=== PATIENT | male | born 1950 | race Caucasian/White ===

== ENCOUNTER 2019-03-26 10:55 | Inpatient (IN) | payer OTHER ==
[2019-03-26 12:12] VITALS: BMI 35.4
--- NOTE | 2019-03-26 13:35 | HP ---
CIWA Score Nausea/Vomitin-Mild Nausea/No Vomiting Muscle Tremors: 4-Moderate,w/Arms Extend Anxiety: 1-Mildly Anxious Agitation: 3 Paroxysmal Sweats: 1-Minimal Palms Moist Orientation: 0-Oriented Tacttile Disturbances: 2-Mild Itch/Numbness/Burn Auditory Disturbances: 0-None Visual Disturbances: 1-Very Mild Sensitivity Headache: 0-None Present CIWA-Ar Total Score: 13 - Admission Criteria OASAS Guidelines: Admission for Medically Managed Detox: Requires at least one of the followin. CIWA greater than 12 2. Seizures within the past 24 hours 3. Delirium tremens within the past 24 hours 4. Hallucinations within the past 24 hours 5. Acute intervention needed for co occurring medical disorder 6. Acute intervention needed for co occurring psychiatric disorder 7. Severe withdrawal that cannot be handled at a lower level of care (continued vomiting, continued diarrhea, abnormal vital signs) requiring intravenous medication and/or fluids 8. Admission ROS [facility] Chief Complaint: detox from alcohol Allergies/Adverse Reactions: Allergies Allergy/AdvReac Type Severity Reaction Status Date / Time No Known Allergies Allergy Verified 03/26/19 12:02 History of Present Illness: Mr. Barnes is a 68yo male with HTN and HLD who presents for detox from alcohol. Pt reports drinking 1-1.25 L of vodka daily for the last 6 months. Prior he was drinking a pint a night for about 20 years. He reports hx of blackouts but denies seizures. His last drink was 3 days ago. Yesterday he presented to [facility] ED with c/c of tremors. He said he was given meds that calmed him down. Urine tox was pos for BZD today. Pt reports recent stressors including of parents and fight with live-in girlfriend. 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 Pt reports dizziness, weakness, tremors, anxiety, numbness. He denies chest pain , SOB, n/v. PMH: HTN, HLD meds: losartan, amlodipine/benazapril, clonidine, pravastatin NKDA surgical hx: tonsillectomy family hx: brother-alcohol use disorder social hx: former smoker quit 40 years ago - Ebola screening Have you traveled outside of the country in the last 21 days: No (N) Have you had contact with anyone from an Ebola affected area: No Do you have a fever: No - Review of Systems Constitutional: Weakness EENT: reports: No Symptoms Reported Respiratory: denies: Cough, Shortness of Breath Cardiac: denies: Chest Pain GI: denies: Diarrhea, Nausea, Vomiting, Abdominal cramping : reports: No Symptoms Reported Musculoskeletal: reports: No Symptoms Reported Integumentary: reports: No Symptoms Reported Neuro: reports: Dizziness. denies: Headache Endocrine: reports: No Symptoms Reported Hematology: reports: No Symptoms Reported Psychiatric: reports: Judgement Intact, Mood/Affect Appropiate, Orientated x3 Patient History - Patient Medical History Hx Hypertension: Yes Hx Hypercholesterolemia: Yes Hx Seizures: No Hx Human Immunodeficiency Virus (HIV): No - Patient Surgical History Other Surgical History: tonsillectomy - Smoking Cessation Smoking history: Former smoker Have you smoked in the past 12 months: No Initiated information on smoking cessation: No - Substances abused Alcohol Substance route: Oral Frequency: Daily Amount used: 1 1/4 quarter liter of vodka Age of first use: 10 Date of last use: 03/23/19 Family Disease History - Family Disease History Family Disease History: Other: Brother (alcohol use disorder) Admission Physical Exam [facility] - Vital Signs Vital Signs: Vital Signs - 24 hr 03/26/19 12:07 Temperature 97.1 F L Pulse Rate 65 Respiratory 20 Rate Blood Pressure 109/67 - Physical General Appearance: Yes: No Apparent Distress, Nourished HEENTM: Yes: Hearing grossly Normal, Normocephalic, JULIA, Other (moist mucous membranes) Respiratory: Yes: Normal Breath Sounds, No Respiratory Distress Neck: Yes: Within Normal Limits Cardiology: Yes: Regular Rhythm, Regular Rate. 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, Fully Oriented, Alert, Motor Strength 5/5, Normal Response, Other (pressured speech) Integumentary: Yes: Within Normal Limits - Diagnostic (1) Hypertension Current Visit: Yes Status: Chronic Qualifiers: Hypertension type: essential hypertension Qualified Code(s): I10 - Essential (primary) hypertension (2) Hyperlipidemia Current Visit: Yes Status: Chronic Qualifiers: Hyperlipidemia type: unspecified Qualified Code(s): E78.5 - Hyperlipidemia , unspecified (3) Alcohol use disorder Current Visit: Yes Status: Chronic Cleared for Admission BHS - Detox or Rehab [facility] Level of Care: Medically Managed Breathalyzer - Breathalyzer Breathalyzer: 0 Urine Drug Screen - Test Device Lot number: [id number] Expiration date: 01/03/21 - Control Is test valid?: Yes - Results Drug screen NEGATIVE: No Urine drug screen results: BZO-Benzodiazepines Inpatient Rehab Admission - Rehab Decision to Admit Inpatient rehab admission?: No
[2019-03-26] MEDS ORDERED: hydrOXYzine PAMOATE 25 MG CAPSULE (FP) PO PRN (13:51)
[2019-03-26] MEDS ORDERED: MAGNESIUM HYDROX 2400MG/30ML ORAL SUSPENSION 30 ML CUP PO PRN (13:51)
[2019-03-26] MEDS ORDERED: chlordiazePOXIDE HCL 25 MG CAPSULE PO PRN (13:51)
[2019-03-26] MEDS ORDERED: METHOCARBAMOL 500 MG TABLET PO PRN (13:51)
[2019-03-26] MEDS ORDERED: ACETAMINOPHEN 325 MG TABLET (FP) PO PRN ×2 (13:51)
[2019-03-26] MEDS ORDERED: ONDANSETRON *ODT* 4 MG TABLET SL PRN (13:51)
[2019-03-26] MEDS ORDERED: MELATONIN 5 MG TABLETS PO PRN (13:51)
[2019-03-26] MEDS ORDERED: BISMUTH SUBSALICYLATE 262 MG/15 ML BTL PO PRN (13:51)
[2019-03-26] MEDS ORDERED: IBUPROFEN 400 MG TABLET (FP) PO PRN (13:51)
[2019-03-26] MEDS ORDERED: MAGNESIUM CITRATE 300 ML BOTTLE PO PRN (13:51)
[2019-03-26] MEDS ORDERED: MENTHOL/PHENOL 1 EACH UD MM PRN (13:51)
[2019-03-26] MEDS ORDERED: MAG HYDROX/AL HYDROX/SIMETH 30 ML UNIT-DOSE CUP PO PRN (13:51)
[2019-03-26] MEDS ORDERED: chlordiazePOXIDE HCL 25 MG CAPSULE PO ONE (14:15)
--- NOTE | 2019-03-26 14:42 | PN ---
Teaching Attending Note Name of Resident: Rachel Mooney ATTENDING PHYSICIAN STATEMENT I saw and evaluated the patient. I reviewed the resident's note and discussed the case with the resident. I agree with the resident's findings and plan as documented. SUBJECTIVE: this 68 years old male with alcohol dependence,hypertension,hypercholesterolemia ,syncope alcohol related, seen in er at [facility] OBJECTIVE: withdrawal signs and symptom Vital Signs Temperature 97.1 F L 03/26/19 12:07 Pulse Rate 65 03/26/19 12:07 Respiratory Rate 20 03/26/19 12:07 Blood Pressure 109/67 03/26/19 12:07 O2 Sat by Pulse Oximetry (%) ASSESSMENT AND PLAN: this 68 years old male need inpatient detox from alcohol,need inpatient detox medically managed,librieum regimen
[2019-03-26] MEDS ORDERED: METHADONE HCL 10 MG TABLET PO ONE (15:29)
[2019-03-26 16:52] LABS: HEMOGLOBIN 14.2 GM/dL (11.7-16.9); MCH 31.4 pg (25.7-33.7); MCHC 33.1 g/dl (32.0-35.9); MEAN CELL VOLUME 94.9 fl (80-96); MEAN PLT VOLUME 7.8 fl (7.5-11.1); PLATELET COUNT 183 K/MM3 (134-434); RBC 4.53 M/mm3 (4.00-5.60); RDW 14.6 % (11.9-15.9); WHITE BLOOD COUNT 6.7 K/mm3 (4.0-10.0)
[2019-03-26] MEDS: chlordiazePOXIDE HCL 25 MG CAPSULE PO SCH ×2 (16:52→22:19)
[2019-03-26 17:03] LABS: ALBUMIN 4.5 g/dl (3.4-5.0); BILIRUBIN,TOTAL 1.5 mg/dL (0.2-1); BLOOD UREA NITROGEN 30.3 mg/dL (7-18); CALCIUM 10.1 mg/dL (8.5-10.1); POTASSIUM 4.2 mmol/L (3.5-5.1); TOT PROT 8.4 g/dl (6.4-8.2)
[2019-03-26] MEDS: THIAMINE HCL 100 MG TABLET (FP) PO SCH (21:45)
[2019-03-26] MEDS: ATORVASTATIN CA 10 MG TABLET (FP) PO SCH (21:45)
[2019-03-26] MEDS: cloNIDine HCL 0.1 MG TABLET PO SCH (21:47)
[2019-03-27] MEDS: chlordiazePOXIDE HCL 25 MG CAPSULE PO SCH ×4 (06:22→22:02)
[2019-03-27] MEDS: LOSARTAN POTASSIUM 50 MG TABLET (FP) PO SCH (10:19)
[2019-03-27] MEDS: amLODIPine BESYLATE 10 MG TABLET (FP) PO SCH (10:19)
[2019-03-27] MEDS: LISINOPRIL 20 MG TABLET (FP) PO SCH (10:20)
[2019-03-27] MEDS: PRENATAL VITAMINS W/ FOLIC ACID TABLET (FP) PO SCH (10:20)
--- NOTE | 2019-03-27 11:41 | EKG ---
Test Reason : Blood Pressure : / mmHG Vent. Rate : 054 BPM Atrial Rate : 054 BPM P-R Int : 218 ms QRS Dur : 094 ms QT Int : 444 ms P-R-T Axes : 018 -01 009 degrees QTc Int : 421 ms SINUS BRADYCARDIA WITH 1ST DEGREE A-V BLOCK INFERIOR INFARCT , AGE UNDETERMINED ABNORMAL ECG NO PREVIOUS ECGS AVAILABLE Confirmed by BRAD ARAIZA MD ([id number]) on 03/27/2019 11:41:09 AM Referred By: Confirmed By:BRAD ARAIZA MD
--- NOTE | 2019-03-27 14:47 | PN ---
[facility] CIWA - CIWA Score Nausea/Vomitin-No Nausea/No Vomiting Muscle Tremors: 2 Anxiety: 3 Agitation: 1-Slight > Activity Paroxysmal Sweats: 2 Orientation: 0-Oriented Tacttile Disturbances: 2-Mild Itch/Numbness/Burn Auditory Disturbances: 0-None Visual Disturbances: 2-Mild Sensitivity Headache: 0-None Present CIWA-Ar Total Score: 12 BHS Progress Note (SOAP) Subjective: Anxious, Tremors, Constipation. Objective: PATIENT A & O X 3, OBSERVED AMBULATING ON UNIT UNASSISTED. IN NO ACUTE DISTRESS. 03/27/19 14:47 Vital Signs Temperature 97.3 F L 03/27/19 13:46 Pulse Rate 78 03/27/19 13:46 Respiratory Rate 18 03/27/19 13:46 Blood Pressure 110/76 03/27/19 13:46 O2 Sat by Pulse Oximetry (%) Laboratory Tests 03/26/19 03/26/19 03/26/19 14:00 14:00 14:00 WBC 6.7 RBC 4.53 Hgb 14.2 Hct 43.0 MCV 94.9 MCH 31.4 MCHC 33.1 RDW 14.6 Plt Count 183 MPV 7.8 Sodium 140 Potassium 4.2 Chloride 101 Carbon Dioxide 26 Anion Gap 12 BUN 30.3 H Creatinine 2.0 H Est GFR (CKD-EPI)AfAm 38.87 Est GFR (CKD-EPI)NonAf 33.54 Random Glucose 108 H Calcium 10.1 Total Bilirubin 1.5 H AST 83 H ALT 72 H Alkaline Phosphatase 66 Total Protein 8.4 H Albumin 4.5 RPR Titer Nonreactive LABS NOTED. Assessment: 03/27/19 14:49 WITHDRAWAL SYMPTOMS. AZOTEMIA. ELEVATED AST LEVEL. HYPERBILIRUBINEMIA. 03/27/19 14:49 Plan: CONTINUE DETOX. INCREASE DAILY PO WATER INTAKE. CMP ORDERED FOR TOMORROW AM FOR RENAL AND HEPATIC LAB ABNORMALITIES NOTED ON DETOX ADMISSION LABORATORY ASSESSMENT.
[2019-03-27] MEDS: THIAMINE HCL 100 MG TABLET (FP) PO SCH (22:02)
[2019-03-27] MEDS: ATORVASTATIN CA 10 MG TABLET (FP) PO SCH (22:02)
[2019-03-27] MEDS: cloNIDine HCL 0.1 MG TABLET PO SCH (22:02)
[2019-03-28] MEDS: chlordiazePOXIDE HCL 25 MG CAPSULE PO SCH ×4 (05:54→22:30)
[2019-03-28] MEDS: PRENATAL VITAMINS W/ FOLIC ACID TABLET (FP) PO SCH (10:36)
[2019-03-28 10:45] LABS: ALBUMIN 3.6 g/dl (3.4-5.0); BLOOD UREA NITROGEN 25.6 mg/dL (7-18); CALCIUM 9.2 mg/dL (8.5-10.1); CREATININE 1.6 mg/dL (0.55-1.3); POTASSIUM 3.7 mmol/L (3.5-5.1); TOT PROT 7.2 g/dl (6.4-8.2)
[2019-03-28] MEDS: LISINOPRIL 20 MG TABLET (FP) PO SCH (12:01)
[2019-03-28] MEDS: LOSARTAN POTASSIUM 50 MG TABLET (FP) PO SCH (12:01)
[2019-03-28] MEDS: amLODIPine BESYLATE 10 MG TABLET (FP) PO SCH (12:02)
--- NOTE | 2019-03-28 14:15 | PN ---
[facility] CIWA - CIWA Score Nausea/Vomitin-No Nausea/No Vomiting Muscle Tremors: 3 Anxiety: 3 Agitation: 3 Paroxysmal Sweats: No Perspiration Orientation: 0-Oriented Tacttile Disturbances: 0-None Auditory Disturbances: 0-None Visual Disturbances: 2-Mild Sensitivity Headache: 0-None Present CIWA-Ar Total Score: 11 S Progress Note (SOAP) Subjective: Anxious, Tremors, Fatigue. Objective: PATIENT A & O X 3, OBSERVED AMBULATING ON UNIT UNASSISTED. IN NO ACUTE DISTRESS. 03/28/19 14:16 Vital Signs Temperature 98.2 F 03/28/19 14:06 Pulse Rate 75 03/28/19 14:06 Respiratory Rate 18 03/28/19 14:06 Blood Pressure 112/75 03/28/19 14:06 O2 Sat by Pulse Oximetry (%) Laboratory Tests 03/26/19 03/26/19 03/26/19 14:00 14:00 14:00 WBC 6.7 RBC 4.53 Hgb 14.2 Hct 43.0 MCV 94.9 MCH 31.4 MCHC 33.1 RDW 14.6 Plt Count 183 MPV 7.8 Sodium 140 Potassium 4.2 Chloride 101 Carbon Dioxide 26 Anion Gap 12 BUN 30.3 H Creatinine 2.0 H Est GFR (CKD-EPI)AfAm 38.87 Est GFR (CKD-EPI)NonAf 33.54 Random Glucose 108 H Calcium 10.1 Total Bilirubin 1.5 H AST 83 H ALT 72 H Alkaline Phosphatase 66 Total Protein 8.4 H Albumin 4.5 RPR Titer Nonreactive 03/28/19 07:00 WBC RBC Hgb Hct MCV MCH MCHC RDW Plt Count MPV Sodium 138 Potassium 3.7 Chloride 104 Carbon Dioxide 24 Anion Gap 11 BUN 25.6 H Creatinine 1.6 H Est GFR (CKD-EPI)AfAm 50.91 Est GFR (CKD-EPI)NonAf 43.93 Random Glucose 115 H Calcium 9.2 Total Bilirubin 1.0 AST 129 H ALT 112 H Alkaline Phosphatase 65 Total Protein 7.2 Albumin 3.6 RPR Titer LABS NOTED. RESULTS OF REPEAT CMP NOTED. IMPROVEMENT NOTED NI ALL RENAL LABS VALUES ON REPEAT LABORATORY ASSESSMENT. ALT AND AST SOMEWHAT HIGHER IN COMPARISON TO ADMISSION ALT AND AST LEVELS. RESULTS OF DETOX ADMISSION QFT /TB TEST PENDING. 03/28/19 14:17 Assessment: 03/28/19 14:19 WITHDRAWAL SYMPTOMS. AZOTEMIA. ELEVATED AST LEVEL. ELEVATED ALT LEVEL. 03/28/19 14:19 Plan: CONTINUE DETOX. SCHEDULED ANTI-HYPERTENSIVE MEDICATIONS AND LIBRIUM HELD EARLIER IN AM DUE TO LOW BLOOD PRESSURE NOTED IN AM. WILL CONTINUE TO MONITOR BLOOD PRESSURE DAY GOES ON AND ADMINISTER MEDICATIONS APPROPRIATE BASED UPON SUBSEQUENT BLOOD PRESSURE READINGS LATER ON IN DAY.
[2019-03-28] MEDS: THIAMINE HCL 100 MG TABLET (FP) PO SCH (22:30)
[2019-03-28] MEDS: ATORVASTATIN CA 10 MG TABLET (FP) PO SCH (22:30)
[2019-03-28] MEDS: cloNIDine HCL 0.1 MG TABLET PO SCH (22:31)
[2019-03-29] MEDS ORDERED: chlordiazePOXIDE HCL 10 MG CAPSULE PO PRN
[2019-03-29] MEDS: chlordiazePOXIDE HCL 10 MG CAPSULE PO SCH ×4 (05:53→22:18)
[2019-03-29] MEDS: LOSARTAN POTASSIUM 50 MG TABLET (FP) PO SCH (10:20)
[2019-03-29] MEDS: amLODIPine BESYLATE 10 MG TABLET (FP) PO SCH (10:20)
[2019-03-29] MEDS: LISINOPRIL 20 MG TABLET (FP) PO SCH (10:20)
[2019-03-29] MEDS: PRENATAL VITAMINS W/ FOLIC ACID TABLET (FP) PO SCH (10:20)
--- NOTE | 2019-03-29 13:53 | PN ---
[facility] CIWA - CIWA Score Nausea/Vomitin-No Nausea/No Vomiting Muscle Tremors: 3 Anxiety: 3 Agitation: 1-Slight > Activity Paroxysmal Sweats: No Perspiration Orientation: 0-Oriented Tacttile Disturbances: 1-Very Mild Itch/Numbness Auditory Disturbances: 0-None Visual Disturbances: 2-Mild Sensitivity Headache: 0-None Present CIWA-Ar Total Score: 10 BHS Progress Note (SOAP) Subjective: Anxious, Fatigue, Tremors. Patient reports That Current withdrawal Detox Symptoms in General Are Subsiding in Severity. Objective: PATIENT A & O X 3, OBSERVED AMBULATING ON UNIT UNASSISTED. IN NO ACUTE DISTRESS. 03/29/19 13:55 Laboratory Tests 03/26/19 03/26/19 03/26/19 14:00 14:00 14:00 WBC 6.7 RBC 4.53 Hgb 14.2 Hct 43.0 MCV 94.9 MCH 31.4 MCHC 33.1 RDW 14.6 Plt Count 183 MPV 7.8 Sodium 140 Potassium 4.2 Chloride 101 Carbon Dioxide 26 Anion Gap 12 BUN 30.3 H Creatinine 2.0 H Est GFR (CKD-EPI)AfAm 38.87 Est GFR (CKD-EPI)NonAf 33.54 Random Glucose 108 H Calcium 10.1 Total Bilirubin 1.5 H AST 83 H ALT 72 H Alkaline Phosphatase 66 Total Protein 8.4 H Albumin 4.5 RPR Titer Nonreactive 03/28/19 07:00 WBC RBC Hgb Hct MCV MCH MCHC RDW Plt Count MPV Sodium 138 Potassium 3.7 Chloride 104 Carbon Dioxide 24 Anion Gap 11 BUN 25.6 H Creatinine 1.6 H Est GFR (CKD-EPI)AfAm 50.91 Est GFR (CKD-EPI)NonAf 43.93 Random Glucose 115 H Calcium 9.2 Total Bilirubin 1.0 AST 129 H ALT 112 H Alkaline Phosphatase 65 Total Protein 7.2 Albumin 3.6 RPR Titer LABS NOTED. RESULTS OF DETOX ADMISSION QFT /TB TEST PENDING. AZOTEMIA. ELEVATED AST LEVEL. ELEVATED ALT LEVEL. 03/29/19 13:57 Assessment: 03/29/19 13:56 WITHDRAWAL SYMPTOMS. Plan: CONTINUE DETOX.
[2019-03-29] MEDS: THIAMINE HCL 100 MG TABLET (FP) PO SCH (22:18)
[2019-03-29] MEDS: ATORVASTATIN CA 10 MG TABLET (FP) PO SCH (22:18)
[2019-03-29] MEDS: cloNIDine HCL 0.1 MG TABLET PO SCH (22:20)
[2019-03-30] MEDS: chlordiazePOXIDE HCL 10 MG CAPSULE PO SCH ×2 (06:09→18:16)
[2019-03-30] MEDS: LISINOPRIL 20 MG TABLET (FP) PO SCH (10:03)
[2019-03-30] MEDS: amLODIPine BESYLATE 10 MG TABLET (FP) PO SCH (10:03)
[2019-03-30] MEDS: PRENATAL VITAMINS W/ FOLIC ACID TABLET (FP) PO SCH (10:03)
[2019-03-30] MEDS: LOSARTAN POTASSIUM 50 MG TABLET (FP) PO SCH (10:03)
--- NOTE | 2019-03-30 11:13 | PN ---
S CIWA - CIWA Score Nausea/Vomitin-No Nausea/No Vomiting Muscle Tremors: 2 Anxiety: 2 Agitation: 2 Paroxysmal Sweats: No Perspiration Orientation: 0-Oriented Tacttile Disturbances: 0-None Auditory Disturbances: 0-None Visual Disturbances: 0-None Headache: 0-None Present CIWA-Ar Total Score: 6 BHS Progress Note (SOAP) Subjective: 68 years old male admitted on 03/26/19 for acute alcohol withdrawal sx management doing well with librium detox regimen history of hypertension denies headache no dizziness no chest pain aftercare community support approach as per patient preference Objective: 03/30/19 11:16 Vital Signs Temperature 98.6 F 03/30/19 09:19 Pulse Rate 89 03/30/19 09:19 Respiratory Rate 18 03/30/19 09:19 Blood Pressure 109/76 03/30/19 09:19 O2 Sat by Pulse Oximetry (%) Laboratory Last Values WBC 6.7 K/mm3 (4.0-10.0) 03/26/19 14:00 RBC 4.53 M/mm3 (4.00-5.60) 03/26/19 14:00 Hgb 14.2 GM/dL (11.7-16.9) 03/26/19 14:00 Hct 43.0 % (35.4-49) 03/26/19 14:00 MCV 94.9 fl (80-96) 03/26/19 14:00 MCH 31.4 pg (25.7-33.7) 03/26/19 14:00 MCHC 33.1 g/dl (32.0-35.9) 03/26/19 14:00 RDW 14.6 % (11.9-15.9) 03/26/19 14:00 Plt Count 183 K/MM3 (134-434) 03/26/19 14:00 MPV 7.8 fl (7.5-11.1) 03/26/19 14:00 Sodium 138 mmol/L (136-145) 03/28/19 07:00 Potassium 3.7 mmol/L (3.5-5.1) 03/28/19 07:00 Chloride 104 mmol/L (98-107) 03/28/19 07:00 Carbon Dioxide 24 mmol/L (21-32) 03/28/19 07:00 Anion Gap 11 MMOL/L (8-16) 03/28/19 07:00 BUN 25.6 mg/dL (7-18) H 03/28/19 07:00 Creatinine 1.6 mg/dL (0.55-1.3) H 03/28/19 07:00 Est GFR (CKD-EPI)AfAm 50.91 03/28/19 07:00 Est GFR (CKD-EPI)NonAf 43.93 03/28/19 07:00 Random Glucose 115 mg/dL (74-106) H 03/28/19 07:00 Calcium 9.2 mg/dL (8.5-10.1) 03/28/19 07:00 Total Bilirubin 1.0 mg/dL (0.2-1) 03/28/19 07:00 AST 129 U/L (15-37) H 03/28/19 07:00 ALT 112 U/L (13-61) H 03/28/19 07:00 Alkaline Phosphatase 65 U/L (45-117) 03/28/19 07:00 Total Protein 7.2 g/dl (6.4-8.2) 03/28/19 07:00 Albumin 3.6 g/dl (3.4-5.0) 03/28/19 07:00 RPR Titer Nonreactive (NONREACTIVE) 03/26/19 14:00 lab noted patient agrees bringing in medication list and lab result to primary care provider for follow up Assessment: 03/30/19 11:16 alcohol withdrawal sx Plan: continue libirum detox regimen patient tolerate well
[2019-03-30] MEDS: THIAMINE HCL 100 MG TABLET (FP) PO SCH (22:20)
[2019-03-30] MEDS: ATORVASTATIN CA 10 MG TABLET (FP) PO SCH (22:20)
[2019-03-30] MEDS: cloNIDine HCL 0.1 MG TABLET PO SCH (22:22)
[2019-03-31] MEDS ORDERED: chlordiazePOXIDE HCL 10 MG CAPSULE PO ONE (05:00)
[2019-03-31 06:14] VITALS: BP 100/70; PULSE 74; TEMP 97.5
--- NOTE | 2019-03-31 09:41 | DS ---
[facility] Detox Discharge Summary Admission Date: 03/26/19 Discharge Date: 03/31/19 - History Present History: Alcohol Dependence Additional Comments: 68 years old male admitted on 03/26/19 for acute alcohol withdrawal sx management doing well with librium detox regimen no complication throughout the detox stay left the detox unit around 0830 am had breakfast and showered alert oriented x 3 steady gait denies dizziness no shortness of breath denies nausea no vomiting encourage antihypertensive adherence Pertinent Past History: hypertension hyperlipidemia - Physical Exam Results Vital Signs: Vital Signs Temperature 97.5 F L 03/31/19 06:13 Pulse Rate 74 03/31/19 06:13 Respiratory Rate 18 03/31/19 06:30 Blood Pressure 100/70 03/31/19 06:13 O2 Sat by Pulse Oximetry (%) Pertinent Admission Physical Exam Findings: alcohol withdrawal sx Laboratory Last Values WBC 6.7 K/mm3 (4.0-10.0) 03/26/19 14:00 RBC 4.53 M/mm3 (4.00-5.60) 03/26/19 14:00 Hgb 14.2 GM/dL (11.7-16.9) 03/26/19 14:00 Hct 43.0 % (35.4-49) 03/26/19 14:00 MCV 94.9 fl (80-96) 03/26/19 14:00 MCH 31.4 pg (25.7-33.7) 03/26/19 14:00 MCHC 33.1 g/dl (32.0-35.9) 03/26/19 14:00 RDW 14.6 % (11.9-15.9) 03/26/19 14:00 Plt Count 183 K/MM3 (134-434) 03/26/19 14:00 MPV 7.8 fl (7.5-11.1) 03/26/19 14:00 Sodium 138 mmol/L (136-145) 03/28/19 07:00 Potassium 3.7 mmol/L (3.5-5.1) 03/28/19 07:00 Chloride 104 mmol/L (98-107) 03/28/19 07:00 Carbon Dioxide 24 mmol/L (21-32) 03/28/19 07:00 Anion Gap 11 MMOL/L (8-16) 03/28/19 07:00 BUN 25.6 mg/dL (7-18) H 03/28/19 07:00 Creatinine 1.6 mg/dL (0.55-1.3) H 03/28/19 07:00 Est GFR (CKD-EPI)AfAm 50.91 03/28/19 07:00 Est GFR (CKD-EPI)NonAf 43.93 03/28/19 07:00 Random Glucose 115 mg/dL (74-106) H 03/28/19 07:00 Calcium 9.2 mg/dL (8.5-10.1) 03/28/19 07:00 Total Bilirubin 1.0 mg/dL (0.2-1) 03/28/19 07:00 AST 129 U/L (15-37) H 03/28/19 07:00 ALT 112 U/L (13-61) H 03/28/19 07:00 Alkaline Phosphatase 65 U/L (45-117) 03/28/19 07:00 Total Protein 7.2 g/dl (6.4-8.2) 03/28/19 07:00 Albumin 3.6 g/dl (3.4-5.0) 03/28/19 07:00 RPR Titer Nonreactive (NONREACTIVE) 03/26/19 14:00 lab noted discuss the importance of bringing in medication list and lab result to aftercare facility - Treatment Hospital Course: Detox Protocol Followed, Detoxed Safely, Responded well, Discharged Condition Good, Rehab Referral Accepted Patient has Accepted a Rehab Referral to: community support approach - Medication Discharge Medications: Ambulatory Orders Amlodipine Besylate/Benazepril [Amlodipine-Benazepril 10-20 mg] 10 mg PO DAILY 03/26/19 Clonidine HCl [Catapres] 0.3 mg PO HS 03/26/19 Pravastatin Sodium [Pravachol -] 40 mg PO HS 03/26/19 Amlodipine Besylate [Norvasc -] 10 mg PO DAILY #30 tablet 03/30/19 Lisinopril [Prinivil] 20 mg PO DAILY #30 tablet 03/30/19 Losartan Potassium [Cozaar] 100 mg PO DAILY #30 tablet 03/30/19 - Diagnosis (1) Alcohol dependence with uncomplicated withdrawal Status: Acute (2) Hyperlipidemia Status: Chronic Qualifiers: Hyperlipidemia type: unspecified Qualified Code(s): E78.5 - Hyperlipidemia , unspecified (3) Hypertension Status: Chronic Qualifiers: Hypertension type: unspecified Qualified Code(s): I10 - Essential (primary ) hypertension - AMA Did Patient Leave Against Medical Advice: No CIWA Score - CIWA Score Nausea/Vomitin-No Nausea/No Vomiting Muscle Tremors: 1-None Visible, but Purchase Anxiety: 1-Mildly Anxious Agitation: 1-Slight > Activity Paroxysmal Sweats: No Perspiration Orientation: 0-Oriented Tacttile Disturbances: 0-None Auditory Disturbances: 0-None Visual Disturbances: 0-None Headache: 0-None Present CIWA-Ar Total Score: 3
== END 2019-03-31 08:39 | disposition home or self-care (01) | DRG 897 ==
LOC: YASAS 10:55 → Y3N 14:02
PROVIDERS: ADMIT Surgery; ATTEND Surgery
PROC: HZ2ZZZZ Detoxification Services for Substance Abuse Treatment (ICD-10-PCS; principal; 2019-03-26)
DX: F10.230 Alcohol dependence with withdrawal, uncomplicated (principal); I10 Essential (primary) hypertension; E78.5 Hyperlipidemia, unspecified; E80.6 Other disorders of bilirubin metabolism; R94.5 Abnormal results of liver function studies; R79.89 Other specified abnormal findings of blood chemistry; Z87.891 Personal history of nicotine dependence
CPT/HCPCS: 36415; 80053; 85027; 86480; 86593; 93005; 93010

== ENCOUNTER 2020-03-08 12:32 | Inpatient (IN) | payer OTHER ==
--- NOTE | 2020-03-08 12:47 | BHS.RME ---
Substance Use & Tx History - Substance Use History Alcohol Substance amount: 35 oz scotch Frequency of use: Daily Substance route: Oral Date of Last Use: 03/08/20 (3am) - Last Treatment Date of last treatment: 03/26-03/31/19 Treatment type: Substance Use Disorder ([facility]) Where was last treatment: Detox Physical/Psych/Mental Status - Behavior General Behavior: Increased activity (restlessness, agitation) Eye Contact: Normal - Cooperativeness Cooperativeness: Cooperative - Thinking Thought Processes: Tight, Logical, Goal Directed - Physical Health Problems Is patient presently having any pain?: No Does patient presently have any injuries (include location): No Does patient currently have a fever: No Is patient : No CIWA Nausea/Vomitin-Mild Nausea/No Vomiting Muscle Tremors: 2 Anxiety: 3 Agitation: 3 Paroxysmal Sweats: 4-Forehead w/Sweat Beads Orientation: 0-Oriented Tacttile Disturbances: 1-Very Mild Itch/Numbness Auditory Disturbances: 0-None Visual Disturbances: 2-Mild Sensitivity Headache: 0-None Present CIWA-Ar Total Score: 16
[2020-03-08 14:51] VITALS: BMI 38.7
--- NOTE | 2020-03-08 15:39 | HP ---
CIWA Score Nausea/Vomitin-Mild Nausea/No Vomiting Muscle Tremors: 2 Anxiety: 3 Agitation: 3 Paroxysmal Sweats: 4-Forehead w/Sweat Beads Orientation: 0-Oriented Tacttile Disturbances: 1-Very Mild Itch/Numbness Auditory Disturbances: 0-None Visual Disturbances: 2-Mild Sensitivity Headache: 0-None Present CIWA-Ar Total Score: 16 - Admission Criteria OASAS Guidelines: Admission for Medically Managed Detox: Requires at least one of the followin. CIWA greater than 12 2. Seizures within the past 24 hours 3. Delirium tremens within the past 24 hours 4. Hallucinations within the past 24 hours 5. Acute intervention needed for co occurring medical disorder 6. Acute intervention needed for co occurring psychiatric disorder 7. Severe withdrawal that cannot be handled at a lower level of care (continued vomiting, continued diarrhea, abnormal vital signs) requiring intravenous medication and/or fluids 8. Admitting History and Physical - Admission History of Present Illness: Patient is a 69 year old male with history of hypertension, hyperlpidemia, alcohol use disorder, presents for detox. PMH: hypertension, hyperlpidemia PSH: denies Social: lives alone, in house Psych: anxiety Legal: Denies Last detox was completed 03/31/2019. Alcohol Substance amount: 35 oz scotch. Denies seizures. 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 Frequency of use: Daily Substance route: Oral Date of Last Use: 03/08/20 (3am). First drink at 9 years old. - Last Treatment Date of last treatment: 03/26-03/31/19 Treatment type: Substance Use Disorder ([facility]UR[facility]) Where was last treatment: Detox History Source: Patient Limitations to Obtaining History: No Limitations - Smoking History Smoking history: Former smoker Have you smoked in the past 12 months: No Admission ROS [facility] Allergies/Adverse Reactions: Allergies Allergy/AdvReac Type Severity Reaction Status Date / Time No Known Allergies Allergy Verified 03/08/20 14:33 Exam Limitations: No Limitations - Ebola screening Have you traveled outside of the country in the last 21 days: No Have you been sick,other than usual withdrawal symptoms: No Do you have a fever: No - Review of Systems Constitutional: No Symptoms Reported EENT: denies: Blurred Vision (wears glasses), Recent change in vision Respiratory: denies: Cough, Shortness of Breath Cardiac: denies: Chest Pain, Palpitations GI: reports: Nausea. denies: Vomiting, Abdominal cramping : denies: Burning, Dysuria Musculoskeletal: reports: Back Pain (chronic). denies: Joint Pain Integumentary: reports: Other (varicose veins). denies: Pruritus, Rash Neuro: denies: Headache, Weakness Psychiatric: reports: Anxious Patient History - Patient Medical History Hx Asthma: No Hx Chronic Obstructive Pulmonary Disease (COPD): No Hx Cardiac Disorders: No Hx Hypertension: Yes Hx Hypercholesterolemia: Yes Hx Seizures: No Hx Diabetes: No Hx Gastrointestinal Disorders: No Hx Genitourinary Disorders: No Hx Sexually Transmitted Disorders: No Hx Renal Disease (ESRD): No Hx Human Immunodeficiency Virus (HIV): No Hx Depression: No Hx Suicide Attempt: No Hx Schizophrenia: No - Patient Surgical History Past Surgical History: No Other Surgical History: tonsillectomy - Reproductive History Patient : (n/a) - Smoking Cessation Smoking history: Former smoker Have you smoked in the past 12 months: No Hx Chewing Tobacco Use: No Initiated information on smoking cessation: No - Substances abused Alcohol Substance route: Oral Frequency: Daily Amount used: 32oz of scotch Age of first use: 9 Date of last use: 03/08/20 Admission Physical Exam BHS - Vital Signs Vital Signs: Vital Signs - 24 hr 03/08/20 14:39 Temperature 97.6 F Pulse Rate 86 Respiratory 18 Rate Blood Pressure 153/88 - Physical General Appearance: Yes: Mild Distress, Obese, Anxious HEENTM: Yes: Hearing grossly Normal, Normocephalic, Normal Voice, JULIA Respiratory: Yes: Lungs Clear, Normal Breath Sounds, No Respiratory Distress, No Accessory Muscle Use Neck: Yes: Supple Breast: Yes: Breast Exam Deferred Cardiology: Yes: Regular Rhythm, Regular Rate, S1, S2 Abdominal: Yes: Normal Bowel Sounds, Non Tender, Flat, Soft Musculoskeletal: Yes: Within Normal Limits, full range of Motion Extremities: Yes: Within Normal Limits, Normal Range of Motion 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, Alert, Motor Strength 5/5 Integumentary: Yes: Dry, Warm - Diagnostic (1) Alcohol dependence with uncomplicated withdrawal Current Visit: Yes Status: Acute (2) Hyperlipidemia Current Visit: No Status: Chronic Qualifiers: Hyperlipidemia type: unspecified Qualified Code(s): E78.5 - Hyperlipidemia, unspecified (3) Hypertension Current Visit: No Status: Chronic Qualifiers: Hypertension type: unspecified Qualified Code(s): I10 - Essential (primary) hypertension Cleared for Admission BHS - Detox or Rehab [facility] Level of Care: Medically Managed Detox Regimen/Protocol: Ativan Claeared for Rehab Admission: No Screened but not Admitted - Documentation of Visit Screened but not Admitted: No Breathalyzer - Breathalyzer Breathalyzer: 0 Urine Drug Screen - Test Device Lot number: [id number] Expiration date: 03/09/22 - Control Is test valid?: Yes - Results Drug screen NEGATIVE: Yes Urine drug screen results: BZO-Benzodiazepines Inpatient Rehab Admission - Rehab Decision to Admit Inpatient rehab admission?: No
[2020-03-08] MEDS ORDERED: MENTHOL/PHENOL 1 EACH UD MM PRN (15:41)
[2020-03-08] MEDS ORDERED: MAGNESIUM CITRATE 300 ML BOTTLE PO PRN (15:41)
[2020-03-08] MEDS ORDERED: ACETAMINOPHEN 325 MG TABLET (FP) PO PRN ×2 (15:41)
[2020-03-08] MEDS ORDERED: MAGNESIUM HYDROX 2400MG/30ML ORAL SUSPENSION 30 ML CUP PO PRN (15:41)
[2020-03-08] MEDS ORDERED: MAG HYDROX/AL HYDROX/SIMETH 30 ML UNIT-DOSE CUP PO PRN (15:41)
[2020-03-08] MEDS ORDERED: LORazepam 1 MG TABLET PO PRN (15:41)
[2020-03-08] MEDS ORDERED: METHOCARBAMOL 500 MG TABLET PO PRN (15:41)
[2020-03-08] MEDS ORDERED: ONDANSETRON *ODT* 4 MG TABLET SL PRN (15:41)
[2020-03-08] MEDS ORDERED: IBUPROFEN 400 MG TABLET (FP) PO PRN (15:41)
[2020-03-08] MEDS ORDERED: BISMUTH SUBSALICYLATE 524 MG/30 ML UD PO PRN (15:41)
[2020-03-08] MEDS ORDERED: TUBERCULIN PPD 5 TU/0.1ML VIAL ID ONE (18:01)
[2020-03-08] MEDS: LORazepam 2 MG TABLET PO SCH ×2 (18:13→22:24)
[2020-03-08] MEDS: hydrOXYzine PAMOATE 25 MG CAPSULE (FP) PO SCH ×2 (18:13→22:24)
[2020-03-08] MEDS ORDERED: MELATONIN 5 MG TABLETS PO SCH (22:00)
[2020-03-08] MEDS: THIAMINE HCL 100 MG TABLET (FP) PO SCH (22:24)
[2020-03-08] MEDS: ATORVASTATIN CA 10 MG TABLET (FP) PO SCH (22:24)
[2020-03-09] MEDS: hydrOXYzine PAMOATE 25 MG CAPSULE (FP) PO SCH ×5 (06:10→22:06)
[2020-03-09] MEDS: LORazepam 2 MG TABLET PO SCH ×4 (06:10→22:06)
--- NOTE | 2020-03-09 08:23 | PN ---
Teaching Attending Note Name of Resident: Neo Holden ATTENDING PHYSICIAN STATEMENT I saw and evaluated the patient. I reviewed the resident's note and discussed the case with the resident. I agree with the resident's findings and plan as documented. SUBJECTIVE: I agree with subjective findings of the resident. OBJECTIVE: I agree with objective findings of the resident. ASSESSMENT AND PLAN: I agree with detox plan by resident.
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
[2020-03-09 10:38] LABS: HEMATOCRIT 42.2 % (35.4-49); HEMOGLOBIN 14.2 GM/dL (11.7-16.9); MCH 31.6 pg (25.7-33.7); MCHC 33.6 g/dl (32.0-35.9); MEAN PLT VOLUME 7.5 fl (7.5-11.1); PLATELET COUNT 159 K/MM3 (134-434); RBC 4.49 M/mm3 (4.00-5.60); RDW 16.4 % (11.9-15.9)
[2020-03-09 10:45] LABS: ALBUMIN 3.4 g/dl (3.4-5.0); BILIRUBIN,TOTAL 1.3 mg/dL (0.2-1); BLOOD UREA NITROGEN 22.8 mg/dL (7-18); CALCIUM 9.6 mg/dL (8.5-10.1); CREATININE 1.3 mg/dL (0.55-1.3); POTASSIUM 3.8 mmol/L (3.5-5.1); TOT PROT 6.8 g/dl (6.4-8.2)
[2020-03-09] MEDS: PRENATAL VITAMINS W/ FOLIC ACID TABLET (FP) PO SCH (10:58)
[2020-03-09] MEDS: LISINOPRIL 20 MG TABLET (FP) PO SCH (10:59)
--- NOTE | 2020-03-09 13:46 | PN ---
S CIWA - CIWA Score Nausea/Vomitin-No Nausea/No Vomiting Muscle Tremors: 3 Anxiety: 4-Mod. Anxious/Guarded Agitation: 3 Paroxysmal Sweats: No Perspiration Orientation: 0-Oriented Tacttile Disturbances: 0-None Auditory Disturbances: 0-None Visual Disturbances: 0-None Headache: 0-None Present CIWA-Ar Total Score: 10 BHS Progress Note (SOAP) Subjective: pt is a 69 y/o male admitted to detox wor alcohol withdrawal sx. c/o anxiety sl tremors fatigue intermittent sleep Objective: 03/09/20 13:43 Vital Signs - 24 hr 03/08/20 03/08/20 03/08/20 14:39 16:45 20:26 Temperature 97.6 F 97.3 F L 97.5 F L Pulse Rate 86 99 H 91 H Respiratory 18 18 18 Rate Blood Pressure 153/88 131/72 153/86 O2 Sat by Pulse 97 96 Oximetry (%) 03/09/20 05:41 Temperature 97.5 F L Pulse Rate 79 Respiratory 18 Rate Blood Pressure 145/97 O2 Sat by Pulse 96 Oximetry (%) Laboratory Tests 03/09/20 03/09/20 03/09/20 08:00 08:00 08:00 WBC 6.0 RBC 4.49 Hgb 14.2 Hct 42.2 MCV 94.0 MCH 31.6 MCHC 33.6 RDW 16.4 H Plt Count 159 MPV 7.5 Sodium Potassium Chloride Carbon Dioxide Anion Gap BUN Creatinine Est GFR (CKD-EPI)AfAm Est GFR (CKD-EPI)NonAf Random Glucose Calcium Total Bilirubin AST ALT Alkaline Phosphatase Total Protein Albumin Syphilis Serology Non-reactive HIV Ag/Ab Combo Qual Negative 03/09/20 08:00 WBC RBC Hgb Hct MCV MCH MCHC RDW Plt Count MPV Sodium 136 Potassium 3.8 Chloride 101 Carbon Dioxide 26 Anion Gap 10 BUN 22.8 H Creatinine 1.3 Est GFR (CKD-EPI)AfAm 64.98 Est GFR (CKD-EPI)NonAf 56.06 Random Glucose 113 H Calcium 9.6 Total Bilirubin 1.3 H AST 78 H ALT 67 H Alkaline Phosphatase 50 Total Protein 6.8 Albumin 3.4 Syphilis Serology HIV Ag/Ab Combo Qual covid-19 result pending alert o x 3 nad oob ambulating Assessment: 03/09/20 13:44 withdrawal sx Plan: cont detox increase po fluids maintain safety
[2020-03-09] MEDS: THIAMINE HCL 100 MG TABLET (FP) PO SCH (22:06)
[2020-03-09] MEDS: MELATONIN 5 MG TABLETS PO PRN (22:06)
[2020-03-09] MEDS: ATORVASTATIN CA 10 MG TABLET (FP) PO SCH (22:06)
[2020-03-10] MEDS: hydrOXYzine PAMOATE 25 MG CAPSULE (FP) PO SCH ×5 (06:07→22:15)
[2020-03-10] MEDS: LORazepam 1 MG TABLET PO SCH ×4 (06:07→22:15)
[2020-03-10] MEDS: LISINOPRIL 20 MG TABLET (FP) PO SCH (10:06)
[2020-03-10] MEDS: PRENATAL VITAMINS W/ FOLIC ACID TABLET (FP) PO SCH (10:06)
--- NOTE | 2020-03-10 11:26 | PN ---
S CIWA - CIWA Score Nausea/Vomitin-No Nausea/No Vomiting Muscle Tremors: 3 Anxiety: 4-Mod. Anxious/Guarded Agitation: 0-Normal Activity Paroxysmal Sweats: 1-Minimal Palms Moist Orientation: 0-Oriented Tacttile Disturbances: 0-None Auditory Disturbances: 0-None Visual Disturbances: 0-None Headache: 0-None Present CIWA-Ar Total Score: 8 BHS Progress Note (SOAP) Subjective: c/o slight anxiety sl tremors slightly unstable on feet(reports an ongoing lower leg weakness for past few weeks at home and hx sciatica/lower back/leg pain) Objective: 03/10/20 11:23 Vital Signs - 24 hr 03/09/20 03/09/20 03/10/20 16:35 20:45 05:33 Temperature 98.4 F 97.6 F 97.3 F L Pulse Rate 80 90 71 Respiratory 18 18 18 Rate Blood Pressure 119/70 149/93 127/73 O2 Sat by Pulse 96 96 Oximetry (%) Laboratory Tests 03/08/20 03/09/20 03/09/20 16:30 08:00 08:00 WBC RBC Hgb Hct MCV MCH MCHC RDW Plt Count MPV Sodium Potassium Chloride Carbon Dioxide Anion Gap BUN Creatinine Est GFR (CKD-EPI)AfAm Est GFR (CKD-EPI)NonAf Random Glucose Calcium Total Bilirubin AST ALT Alkaline Phosphatase Total Protein Albumin Syphilis Serology Non-reactive COVID-19 (ZOFIA) Not detected HIV Ag/Ab Combo Qual Negative 03/09/20 03/09/20 08:00 08:00 WBC 6.0 RBC 4.49 Hgb 14.2 Hct 42.2 MCV 94.0 MCH 31.6 MCHC 33.6 RDW 16.4 H Plt Count 159 MPV 7.5 Sodium 136 Potassium 3.8 Chloride 101 Carbon Dioxide 26 Anion Gap 10 BUN 22.8 H Creatinine 1.3 Est GFR (CKD-EPI)AfAm 64.98 Est GFR (CKD-EPI)NonAf 56.06 Random Glucose 113 H Calcium 9.6 Total Bilirubin 1.3 H AST 78 H ALT 67 H Alkaline Phosphatase 50 Total Protein 6.8 Albumin 3.4 Syphilis Serology COVID-19 (ZOFIA) HIV Ag/Ab Combo Qual covid-19 not detected alert o x 3 nad oob ambulating with slight unsteady gait. Assessment: 03/10/20 11:26 withdrawal sx Plan: cont detox increase po fluids maintain safety D/w pt to follow up with his primary care provider for evaluation of his back and Sciatica/weak lower legs.
[2020-03-10] MEDS: MELATONIN 5 MG TABLETS PO PRN (22:15)
[2020-03-10] MEDS: THIAMINE HCL 100 MG TABLET (FP) PO SCH (22:15)
[2020-03-10] MEDS: ATORVASTATIN CA 10 MG TABLET (FP) PO SCH (22:15)
[2020-03-11] MEDS ORDERED: LORazepam 0.5 MG TABLET PO PRN
[2020-03-11] MEDS: LORazepam 0.5 MG TABLET PO SCH ×4 (06:27→21:59)
[2020-03-11] MEDS: hydrOXYzine PAMOATE 25 MG CAPSULE (FP) PO SCH ×5 (06:27→21:59)
[2020-03-11] MEDS: LISINOPRIL 20 MG TABLET (FP) PO SCH (11:06)
[2020-03-11] MEDS: PRENATAL VITAMINS W/ FOLIC ACID TABLET (FP) PO SCH (11:06)
--- NOTE | 2020-03-11 17:23 | PN ---
S CIWA - CIWA Score Nausea/Vomitin-No Nausea/No Vomiting Muscle Tremors: 2 Anxiety: 1-Mildly Anxious Agitation: 3 Paroxysmal Sweats: 1-Minimal Palms Moist Orientation: 0-Oriented Tacttile Disturbances: 0-None Auditory Disturbances: 0-None Visual Disturbances: 0-None Headache: 0-None Present CIWA-Ar Total Score: 7 BHS Progress Note (SOAP) Subjective: Pt [place]-reports has hearing aid and not functioning well. slight anxiety back pain Objective: 03/11/20 17:23 Vital Signs - 24 hr 03/10/20 03/10/20 03/11/20 20:29 23:19 06:13 Temperature 97.5 F L 98.0 F Pulse Rate 72 68 75 Respiratory 18 18 Rate Blood Pressure 153/87 133/74 139/80 O2 Sat by Pulse 96 96 Oximetry (%) Laboratory Tests 03/08/20 03/09/20 03/09/20 16:30 08:00 08:00 WBC RBC Hgb Hct MCV MCH MCHC RDW Plt Count MPV Sodium Potassium Chloride Carbon Dioxide Anion Gap BUN Creatinine Est GFR (CKD-EPI)AfAm Est GFR (CKD-EPI)NonAf Random Glucose Calcium Total Bilirubin AST ALT Alkaline Phosphatase Total Protein Albumin Syphilis Serology Non-reactive COVID-19 (ZOFIA) Not detected HIV Ag/Ab Combo Qual Negative 03/09/20 03/09/20 08:00 08:00 WBC 6.0 RBC 4.49 Hgb 14.2 Hct 42.2 MCV 94.0 MCH 31.6 MCHC 33.6 RDW 16.4 H Plt Count 159 MPV 7.5 Sodium 136 Potassium 3.8 Chloride 101 Carbon Dioxide 26 Anion Gap 10 BUN 22.8 H Creatinine 1.3 Est GFR (CKD-EPI)AfAm 64.98 Est GFR (CKD-EPI)NonAf 56.06 Random Glucose 113 H Calcium 9.6 Total Bilirubin 1.3 H AST 78 H ALT 67 H Alkaline Phosphatase 50 Total Protein 6.8 Albumin 3.4 Syphilis Serology COVID-19 (ZOFIA) HIV Ag/Ab Combo Qual alert o x 3 nad oob ambulates with steady gait Assessment: 03/11/20 17:24 mild w/s Plan: cont detox d/c in a.m if medically stable
[2020-03-11] MEDS: MELATONIN 5 MG TABLETS PO PRN (21:59)
[2020-03-11] MEDS: THIAMINE HCL 100 MG TABLET (FP) PO SCH (21:59)
[2020-03-11] MEDS: ATORVASTATIN CA 10 MG TABLET (FP) PO SCH (21:59)
[2020-03-12] MEDS ORDERED: LORazepam 0.5 MG TABLET PO ONE (05:00)
[2020-03-12] MEDS: hydrOXYzine PAMOATE 25 MG CAPSULE (FP) PO SCH ×2 (06:06→09:18)
--- NOTE | 2020-03-12 08:27 | DS ---
[facility] Detox Discharge Summary Admission Date: 03/08/20 Discharge Date: 03/12/20 - History Present History: Alcohol Dependence Additional Comments: Pt completed detox and scheduled for discharge today. Pt reports he has primary care with a Dr. Montano in [place], [place]. Reports has his medications at home. Pertinent Past History: HTN Hyperlipidemia - Physical Exam Results Vital Signs: Vital Signs Temperature 97.8 F 03/12/20 05:59 Pulse Rate 75 03/12/20 05:59 Respiratory Rate 18 03/12/20 05:59 Blood Pressure 155/93 03/12/20 05:59 O2 Sat by Pulse Oximetry (%) 95 03/12/20 05:59 alert o x 3 nad oob ambulating with steady gait cardiac:s1 s2.rrr lungs:ctab abdomen:+++fatty, soft,+bs,nt,nd extremities:no edema,skin intact. Varicose veins right lower leg. Pertinent Admission Physical Exam Findings: Laboratory Tests 03/08/20 03/09/20 03/09/20 16:30 08:00 08:00 WBC RBC Hgb Hct MCV MCH MCHC RDW Plt Count MPV Sodium Potassium Chloride Carbon Dioxide Anion Gap BUN Creatinine Est GFR (CKD-EPI)AfAm Est GFR (CKD-EPI)NonAf Random Glucose Calcium Total Bilirubin AST ALT Alkaline Phosphatase Total Protein Albumin Syphilis Serology Non-reactive COVID-19 (ZOFIA) Not detected HIV Ag/Ab Combo Qual Negative 03/09/20 03/09/20 08:00 08:00 WBC 6.0 RBC 4.49 Hgb 14.2 Hct 42.2 MCV 94.0 MCH 31.6 MCHC 33.6 RDW 16.4 H Plt Count 159 MPV 7.5 Sodium 136 Potassium 3.8 Chloride 101 Carbon Dioxide 26 Anion Gap 10 BUN 22.8 H Creatinine 1.3 Est GFR (CKD-EPI)AfAm 64.98 Est GFR (CKD-EPI)NonAf 56.06 Random Glucose 113 H Calcium 9.6 Total Bilirubin 1.3 H AST 78 H ALT 67 H Alkaline Phosphatase 50 Total Protein 6.8 Albumin 3.4 Syphilis Serology COVID-19 (ZOFIA) HIV Ag/Ab Combo Qual - Treatment Hospital Course: Detox Protocol Followed, Detoxed Safely, Responded well, Discharged Condition Good, Rehab Referral Accepted Patient has Accepted a Rehab Referral to: [place], [place] - Medication Discharge Medications: Ambulatory Orders Pravastatin Sodium [Pravachol -] 40 mg PO HS 03/26/19 Lisinopril [Prinivil] 20 mg PO DAILY #30 tablet 03/30/19 - Diagnosis (1) Alcohol dependence with uncomplicated withdrawal Status: Acute (2) Hyperlipidemia Status: Chronic Qualifiers: Hyperlipidemia type: unspecified Qualified Code(s): E78.5 - Hyperlipidemia, unspecified (3) Hypertension Status: Chronic Qualifiers: Hypertension type: essential hypertension Qualified Code(s): I10 - Essential (primary) hypertension (4) Varicose vein of leg Status: Chronic Qualifiers: Laterality: right - AMA Did Patient Leave Against Medical Advice: No
[2020-03-12] MEDS: PRENATAL VITAMINS W/ FOLIC ACID TABLET (FP) PO SCH (09:18)
[2020-03-12] MEDS: LISINOPRIL 20 MG TABLET (FP) PO SCH (09:18)
[2020-03-12 09:50] VITALS: BP 138/79; PULSE 95; TEMP 97.3
== END 2020-03-12 09:25 | disposition home or self-care (01) | DRG 897 ==
LOC: YASAS 12:32 → Y5N DETOX 16:21
PROVIDERS: ADMIT Allergy & Immunology; ATTEND Allergy & Immunology
PROC: HZ2ZZZZ Detoxification Services for Substance Abuse Treatment (ICD-10-PCS; principal; 2020-03-08)
DX: F10.230 Alcohol dependence with withdrawal, uncomplicated (principal); F10.282 Alcohol dependence with alcohol-induced sleep disorder; I10 Essential (primary) hypertension; E78.5 Hyperlipidemia, unspecified; I83.91 Asymptomatic varicose veins of right lower extremity; Z87.891 Personal history of nicotine dependence
CPT/HCPCS: 36415; 80053; 85027; 86780; 87389; U0003

== ENCOUNTER 2023-10-14 14:16 | Inpatient (IN) | payer OTHER ==
[2023-10-14 15:19] VITALS: BMI 33.3
[2023-10-14] MEDS ORDERED: NALOXONE HCL 0.4 MG/ML VIAL IM PRN (20:55)
[2023-10-14] MEDS ORDERED: BISMUTH SUBSALICYLATE 524 MG/30 ML PO PRN (20:55)
[2023-10-14] MEDS ORDERED: POLYETHYLENE GLYCOL (HEALTHYLAX) 3350 17 GM PACKET PO PRN (20:55)
[2023-10-14] MEDS ORDERED: ONDANSETRON *ODT* 4 MG TABLET SL PRN (20:55)
[2023-10-14] MEDS ORDERED: MAG HYDROX/AL HYDROX/SIMETH 30 ML UNIT-DOSE CUP PO PRN (20:55)
[2023-10-14] MEDS ORDERED: NALOXONE HCL (KLOXXADO) 8 MG SPRAY NS PRN (20:55)
[2023-10-14] MEDS ORDERED: BENZOCAINE/MENTHOL (CHLORASEPTIC ) LOZENGE MM PRN (20:55)
[2023-10-14] MEDS ORDERED: BENZONATATE 200 MG CAPSULE PO PRN (20:55)
[2023-10-14] MEDS ORDERED: ACETAMINOPHEN 325 MG TABLET (FP) PO PRN (20:55)
[2023-10-14] MEDS ORDERED: IBUPROFEN 400 MG TABLET (FP) PO PRN (20:55)
[2023-10-14] MEDS ORDERED: LOPERAMIDE HCL 2 MG CAPSULE PO PRN (20:55)
[2023-10-14] MEDS ORDERED: MAGNESIUM HYDROX 2400MG/30ML ORAL SUSPENSION 30 ML CUP PO PRN (20:55)
[2023-10-14] MEDS ORDERED: guaiFENesin 600 MG TABLET.ER (FP) PO PRN (20:55)
[2023-10-14] MEDS ORDERED: chlordiazePOXIDE HCL 25 MG CAPSULE PO PRN (20:59)
[2023-10-14] MEDS: chlordiazePOXIDE HCL 25 MG CAPSULE PO SCH (22:03)
[2023-10-14] MEDS: THIAMINE HCL 100 MG TABLET (FP) PO SCH (22:04)
[2023-10-14] MEDS: MELATONIN 5 MG TABLETS PO SCH (22:04)
[2023-10-15] MEDS: PRENATAL VITAMINS W/ FOLIC ACID TABLET (FP) PO SCH (10:09)
[2023-10-15 11:53] LABS: HEMATOCRIT 40.5 % (35.4-49); MCH 28.6 pg (25.7-33.7); MCHC 34.5 g/dl (32.0-35.9); MEAN CELL VOLUME 82.7 fl (80-96); MEAN PLT VOLUME 7.5 fl (7.5-11.1); PLATELET COUNT 215 10^3/uL (134-434); RBC 4.89 M/mm3 (4.00-5.60); WHITE BLOOD COUNT 8.9 K/mm3 (4.0-10.0)
[2023-10-15] MEDS: cloNIDine HCL 0.1 MG TABLET PO ONE (22:04)
[2023-10-15] MEDS: ATORVASTATIN CA 10 MG TABLET (FP) PO SCH (22:05)
[2023-10-16] MEDS: chlordiazePOXIDE HCL 25 MG CAPSULE PO SCH (05:18)
[2023-10-16] MEDS: LISINOPRIL 20 MG TABLET PO SCH (09:15)
[2023-10-16 12:20] LABS: POTASSIUM 4.2 mmol/L (3.5-5.1)
[2023-10-16 12:28] LABS: ALBUMIN 3.1 g/dl (3.4-5.0)
[2023-10-16 12:29] LABS: BLOOD UREA NITROGEN 24.1 mg/dL (7-18)
[2023-10-16 12:30] LABS: BILIRUBIN,TOTAL 0.6 mg/dL (0.2-1); TOT PROT 6.4 g/dl (6.4-8.2)
[2023-10-16] MEDS: IBUPROFEN 600 MG TABLET (FP) PO PRN (16:32)
[2023-10-17] MEDS ORDERED: chlordiazePOXIDE HCL 10 MG CAPSULE PO PRN
[2023-10-17] MEDS: chlordiazePOXIDE HCL 10 MG CAPSULE PO SCH (05:03)
[2023-10-18] MEDS: chlordiazePOXIDE HCL 10 MG CAPSULE PO SCH (05:21)
[2023-10-19] MEDS: chlordiazePOXIDE HCL 10 MG CAPSULE PO ONE (05:16)
[2023-10-19 12:56] VITALS: BP 136/76; PULSE 65; RESP 18; TEMP 97.7
== END 2023-10-19 16:00 | disposition home or self-care (01) | DRG 897 ==
LOC: YASAS 14:16 → Y6N 20:42
PROVIDERS: ADMIT Allergy & Immunology; ATTEND Surgery
PROC: HZ2ZZZZ Detoxification Services for Substance Abuse Treatment (ICD-10-PCS; principal; 2023-10-14)
DX: F10.230 Alcohol dependence with withdrawal, uncomplicated (principal); E78.5 Hyperlipidemia, unspecified; I10 Essential (primary) hypertension; H91.93 Unspecified hearing loss, bilateral; Z87.891 Personal history of nicotine dependence; Z28.310 Unvaccinated for COVID-19; Z28.9 Immunization not carried out for unspecified reason
CPT/HCPCS: 36415; 80053; 80305; 85027; 86780; 87635; 93005; 93010